=== PATIENT | male | born 1945 | race Caucasian/White ===

== ENCOUNTER 2023-01-25 02:23 | Observation (INO) | payer OTHER ==
[~2023-01-25] VITALS: Ht 195.6 cm; Wt 80.2 kg
[2023-01-25 02:50] LABS: BASOPHILS ABSOLUTE AUTO 0.05 K/mm3 (0.00-0.23); BASOPHILS PERCENT AUTO 1 % (0-2); EOSINOPHILS ABSOLUTE AUTO 0.24 K/mm3 (0.00-0.68); EOSINOPHILS PERCENT AUTO 3 % (0-6); Hematocrit 54.9 % (37.0-53.0); Hemoglobin 18.4 g/dL (13.5-17.5); IMMATURE GRAN ABSOLUTE AUTO 0.06 K/mm3 (0.00-0.10); IMMATURE GRAN PERCENT AUTO 1 % (0-1); LYMPHOCYTES ABSOLUTE AUTO 2.71 K/mm3 (0.84-5.20); LYMPHOCYTES PERCENT AUTO 30 % (21-46); MONOCYTES ABSOLUTE AUTO 0.75 K/mm3 (0.16-1.47); MONOCYTES PERCENT AUTO 8 % (4-13); Mean Corpuscular HGB 31.8 pg (26.0-34.0); Mean Corpuscular HGB Conc 33.5 g/dL (31.5-36.5); Mean Corpuscular Volume 95 fL (80-100); Mean Platelet Volume 8.1 fL (9.1-12.4); NEUTROPHILS ABSOLUTE AUTO 5.18 K/mm3 (1.96-9.15); NEUTROPHILS PERCENT AUTO 58 % (41-73); Platelet Count 256 K/mm3 (150-400); RDW Coefficient Variation 14.1 % (11.7-14.2); RDW Standard Deviation 49.3 fL (35.1-46.3); Red Blood Cell Count 5.78 M/mm3 (4.30-5.90); White Blood Cell Count 8.99 K/mm3 (4.00-11.30)
[2023-01-25 03:08] LABS: Albumin, Blood 3.4 g/dL (3.4-5.0); Albumin/Globulin Ratio 0.8 (0.8-1.8); Bilirubin, Total 0.4 mg/dL (0.1-1.0); Bun/Creatinine Ratio 17.7 (12.0-20.0); Calcium, Blood 8.5 mg/dL (8.5-10.1); Creatinine, Blood 0.73 mg/dL (0.60-1.20); Globulin, Blood 4.1 g/dL (2.2-4.0); Total Protein, Blood 7.5 g/dL (6.4-8.2)
[2023-01-25 03:58] LABS: Influenza A, PCR NEGATIVE (NEGATIVE); Influenza B, PCR NEGATIVE (NEGATIVE); Resp Syncytial Virus, PCR NEGATIVE (NEGATIVE); SARS-Cov-2 (COVID-19) PCR, MMC NEGATIVE (NEGATIVE)
[2023-01-25 05:01] LABS: Base Excess Venous -4.7 mmol/L; Bicarbonate Venous 21.1 mmol/L (24.0-30.0); PCO2 Venous 35.1 mmHg (38-42); pH Blood Venous 7.38 (7.34-7.37)
[2023-01-25 05:26] LABS: Source, Urine Clean Catch
[2023-01-25 05:32] LABS: Appearance, Urine Clear (Clear); Bilirubin, Urine Neg (Neg); Blood, Urine Neg (Neg); Color, Urine Yellow (P-Yellow); Glucose Qualitative, Urine Neg (Neg); Ketones, Urine Neg (Neg); Leukocyte Esterase, Urine Neg (Neg); Nitrite, Urine Neg (Neg); Protein, Urine 2+ (Neg); Specific Gravity, Urine 1.005 (1.003-1.022); Urobilinogen, Urine NORM (Normal); pH, Urine 6.5 (5.0-8.0)
[2023-01-25 05:40] LABS: Bacteria Not Seen /hpf; Red Blood Cells, Urine Not Seen /hpf (0-2); Squamous Epithelial Cells Not Seen /hpf (Few); White Blood Cells, Urine 0-2 /hpf (0-5)
[2023-01-25] MEDS ORDERED: ASPI81CH PO (16:23)
[2023-01-25] MEDS ORDERED: THERA-D2000 UNIT PO (16:24)
[2023-01-25] MEDS ORDERED: EZET10 PO (16:24)
[2023-01-25] MEDS ORDERED: GEMF600 PO (16:25)
[2023-01-25] MEDS ORDERED: Isosorbide Mono30 MG PO (16:25)
[2023-01-25] MEDS ORDERED: NITR.4SL SL (16:25)
[2023-01-25] MEDS ORDERED: METO50ER PO (16:25)
[2023-01-25] MEDS ORDERED: OMEGA-3 FISH O1 EAC6 PO (16:26)
[2023-01-25 18:05] VITALS: BP 135/83
--- NOTE | 2023-01-25 18:17 | NUR ---
SHIFT SUMMARY; ER ADMIT DURING SHIFT. TRANSFERRED TO BED FROM [facility] INDEP[facility]ANTLY. A/A/OX3 IRRITABLE AND TIMES STATING FEELS FINE AND WANTS TO LEAVE. EVAL BY CARDIOLOGY IN EVENING. AGREES TO STAY NIGHT FOR MONITORING AND POSSIBLE METOPROLOL DOSE ADJUSTMENT. CIWA ORDERS IN PLACE. DRINKS DAILY WISKEY PER S.O., PT REPORTS ONLY DRINKING 3X PER WEEK BUT STATES WAS SOBER AT ONE TIME MANY YEARS AGO AND STARTED DRINKING AGAIN. AMBULATES TO RESTROOM WITH SBA, DINNER PROVIDED. WILL CONTINUE TO MONITOR AND TREAT UNTIL CHANGE OF SHIFT.
--- NOTE | 2023-01-25 18:21 | NUR ---
IGNITION RISK EVALUATED, DENIES SOURCES.
[2023-01-25 19:41] VITALS: BP 145/84
[2023-01-26 00:39] VITALS: BP 168/95
[2023-01-26 02:33] VITALS: BP 142/88
[2023-01-26 04:13] VITALS: BP 132/75
[2023-01-26 05:01] LABS: BASOPHILS ABSOLUTE AUTO 0.04 K/mm3 (0.00-0.23); BASOPHILS PERCENT AUTO 1 % (0-2); EOSINOPHILS ABSOLUTE AUTO 0.14 K/mm3 (0.00-0.68); EOSINOPHILS PERCENT AUTO 2 % (0-6); Hematocrit 53.3 % (37.0-53.0); IMMATURE GRAN ABSOLUTE AUTO 0.04 K/mm3 (0.00-0.10); IMMATURE GRAN PERCENT AUTO 1 % (0-1); LYMPHOCYTES ABSOLUTE AUTO 1.69 K/mm3 (0.84-5.20); LYMPHOCYTES PERCENT AUTO 27 % (21-46); MONOCYTES ABSOLUTE AUTO 0.47 K/mm3 (0.16-1.47); MONOCYTES PERCENT AUTO 8 % (4-13); Mean Corpuscular HGB 31.5 pg (26.0-34.0); Mean Corpuscular HGB Conc 33.8 g/dL (31.5-36.5); Mean Corpuscular Volume 93 fL (80-100); Mean Platelet Volume 7.9 fL (9.1-12.4); NEUTROPHILS ABSOLUTE AUTO 3.87 K/mm3 (1.96-9.15); NEUTROPHILS PERCENT AUTO 62 % (41-73); Platelet Count 216 K/mm3 (150-400); RDW Coefficient Variation 14.1 % (11.7-14.2); RDW Standard Deviation 48.1 fL (35.1-46.3); Red Blood Cell Count 5.71 M/mm3 (4.30-5.90); White Blood Cell Count 6.25 K/mm3 (4.00-11.30)
[2023-01-26 05:30] LABS: CHOL/HDL RATIO 2.7; Cholesterol 163 mg/dL (50-200); HDL Cholesterol 60 mg/dL (>39); LDL/HDL RATIO 1.5; Low Density Lipoprotein Chol 91 mg/dL (0-110); Magnesium, Blood 1.6 mg/dL (1.6-2.4); Triglycerides 59 mg/dL (30-160); Very Low Density Lipoprot Chol 11 mg/dL (6-32)
--- NOTE | 2023-01-26 06:38 | NUR ---
SHIFT SUMMARY A/Ox4 AND COOPERATIVE WITH CARE. ANSWERS QUESTIONS APPROPRIATELY AND ABLE TO MAKE HIS NEEDS KNOWN. CAN BE IRRITABLE WITH STAFF AT TIMES. NO ACUTE EVENTS OVERNIGHT. CARDIAC, REMAINS IN SR 80-90'S WITH NO REPORTS OF CP OR PRESSURE T/O THE NIGHT. SBP ELEVATED INTO THE 160-170'S. DR. JERAD Jean-Baptiste NOTIFIED WITH ORDERS FOR 10MG HYDRALAZINE TO BE GIVEN. MED HAS GOOD EFFECT, SEE V/S FOR DETAILS. RESPIRATORY, MAINTAINS SPO2 >95% ON RA WITH NO REPORTS OF SOB OR DYSPNEA. GI/, ABLE TO STAND AT BEDSIDE AND VOID CLEAR/YELLOW URINE INTO URINAL. NO BM FOR THIS SHIFT. PT HAS BEEN NPO SINCE MDN ORDERED. 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 ASSESSED PT FOR RISKS OF ANY IGNITION SOURCES WELL BEHAVIORS FOR INCREASED RISKS OF FIRE DANGER. PT EDUCATED ON COMMON SOURCES OF IGNITION WELL NEED TO KEEP A SAFE ENVIRONMENT. PT VOICED UNDERSTANDING. NO NEW ORDERS AT THIS TIME, WILL REPORT TO ONCOMING RN. CAPELLAN OF THIS NOTE.
[2023-01-26 07:36] VITALS: BP 130/84
== END 2023-01-26 12:13 | disposition home or self-care (01) ==
LOC: ER 02:23 → ERHOLD 02:24 → PCU 02:24 → ERHOLD 02:24 → EDBEDREQTM 06:50 → EDBEDREQ 06:50 → EDBEDREQSVC 06:50 → PCU 13:27
PROVIDERS: Student in an Organized Health Care Education/Training Program; ADMIT Student in an Organized Health Care Education/Training Program
DX: I49.5 Sick sinus syndrome (principal); R07.89 Other chest pain; I10 Essential (primary) hypertension; E78.5 Hyperlipidemia, unspecified; I25.10 Atherosclerotic heart disease of native coronary artery without angina pectoris; I25.2 Old myocardial infarction; Z87.891 Personal history of nicotine dependence; Z95.1 Presence of aortocoronary bypass graft
CPT/HCPCS: 0241U; 36415; 71045; 80053; 80061; 81001; 82803; 83036; 83735; 83880; 84443; 84484; 85025; 93005; 93010; 93246; 93306; 94762; 96361; 96365; 96366; 96368; 96372; 96374; 96375; 99285-25; A9270; G0378; J0360; J1650; J3010; J3411; J7030